=== PATIENT | male | born 1955 | race African-American/Black ===

== ENCOUNTER 2018-11-29 04:54 | Inpatient (IN) | payer MEDICAID ==
[~2018-11-29] VITALS: Ht 190.5 cm; Wt 73.8 kg
[2018-11-29] MEDS ORDERED: ONDANSETRON 2MG/ML, 2ML IVPush ONE (05:30)
[2018-11-29] MEDS ORDERED: SODIUM CHLORIDE FLUSH 10ML SYR IVF ONE (05:30)
[2018-11-29] MEDS ORDERED: ACETAMINOPHEN 325 MG TABLET PO ONE (05:30)
[2018-11-29] MEDS ORDERED: ALBUTEROL/IPRATROPIUM 2.5MG/0.5MG, 3 ML NPPB ONE (05:30)
[2018-11-29] MEDS ORDERED: SODIUM CHLORIDE 0.9% 1,000ML IVBOLUS ONE (05:30)
[2018-11-29] MEDS ORDERED: MIRT30TA PO (05:43)
[2018-11-29] MEDS ORDERED: MORP30TA81 PO (05:43)
[2018-11-29] MEDS ORDERED: NAUSEA MEDS (05:43)
[2018-11-29] MEDS ORDERED: MELA1TAB6 PO (05:43)
[2018-11-29] MEDS ORDERED: HYDR-3622 PO (05:43)
[2018-11-29] MEDS ORDERED: ONDANSETRON 2MG/ML, 2ML ONE (05:46)
[2018-11-29] MEDS ORDERED: ACETAMINOPHEN 325 MG TABLET ONE (05:46)
--- NOTE | 2018-11-29 06:15 | NUR ---
IV STARTED, ABLE TO DRAWN LABS. BLOOD CULTURES DRAWN X2. ORDERED FLUIDS AND MEDS GIVEN PER EMAR. PT RESTING CALMLY IN [facility] IN [facility]OSPITAL GOWN. PT ON VITALS AND CARDIAC MONITORS. BREATHING TX DONE. FLU SWAB DONE AND SENT. BILAT BEDRAILS UP. CALL LIGHT WITHIN REACH. WILL CONTINUE TO MONITOR.
[2018-11-29 06:18] LABS: RAPID INFLUENZA A Negative (Negative); RAPID INFLUENZA B Negative (Negative)
--- NOTE | 2018-11-29 06:19 | NUR ---
CT PENDING: LAB RES/CREAT
[2018-11-29 06:21] LABS: MEAN CORPUSCULAR HEMOGLOBIN 29.8 pg (27.5-34.5); MEAN CORPUSCULAR HGB CONC 33.5 g/dL (33.2-36.2); MEAN CORPUSCULAR VOLUME 88.9 fL (81-97); MEAN PLATELET VOLUME 7.1 fL (7.4-10.4); PLATELET COUNT 204 x10^3/uL (130-400); RED BLOOD COUNT 4.42 x10^6/uL (4.38-5.82); RED CELL DISTRIBUTION WIDTH 14.9 % (9.4-14.8)
[2018-11-29 06:22] LABS: ALANINE AMINOTRANSFERASE 32 U/L (12-78); ALBUMIN 3.1 g/dL (3.4-5.0); ANION GAP 8 mmol/L (5-15); CALCIUM 8.6 mg/dL (8.5-10.1); CHLORIDE 101 mmol/L (98-107)
[2018-11-29 06:27] LABS: ALKALINE PHOSPHATASE 78 U/L (45-117); BILIRUBIN,TOTAL 0.6 mg/dL (0.2-1.0); TROPONIN I < 0.015 ng/mL (0.000-0.045)
--- NOTE | 2018-11-29 06:27 | NUR ---
PT GIVEN URINAL AND URINE CUP FOR SPECIMEN COLLECTION AND INSTRUCTED ON PROPER COLLECTION PROCEDURE.
[2018-11-29 06:49] LABS: BASOPHILS # (AUTO) 0.03 x10^3/uL (0-0.1); BASOPHILS % (AUTO) 1 % (0-1); EOSINOPHILS # (AUTO) 0.07 x10^3/uL (0-0.4); EOSINOPHILS % (AUTO) 1 % (1-7); LYMPHOCYTES # (AUTO) 0.76 x10^3/uL (1-3.4); LYMPHOCYTES % (AUTO) 11 % (22-44); MD SCAN; MONOCYTES # (AUTO) 1.02 x10^3/uL (0.2-0.8); MONOCYTES % (AUTO) 15 % (2-9); NEUTROPHILS # (AUTO) 4.93 x10^3/uL (1.8-6.8); NEUTROPHILS % (AUTO) 72 % (42-75)
--- NOTE | 2018-11-29 06:55 | NUR ---
pt SpO2 88-89% RA while sleeping, improved after suppl O2 applied.
[2018-11-29] MEDS ORDERED: OMNIPAQUE 350 MG/ML, 100ML BOTTLE ONE (06:57)
--- NOTE | 2018-11-29 07:00 | NUR ---
received report from [facility]. pt sleeping on gurney, responds approp to staff, NAD, comfort measures provided, call light within reach.
[2018-11-29] MEDS ORDERED: PIPERACILLIN/TAZO/PMX 3.375GM 50 ML ONE (07:56)
[2018-11-29] MEDS ORDERED: PIPERACILLIN/TAZO/PMX 3.375GM 50 ML IV ONE (08:00)
--- NOTE | 2018-11-29 08:00 | NUR ---
BOTH BLOOD CULTURES DRAWN BEFORE ABX GIVEN
--- NOTE | 2018-11-29 08:37 | NUR ---
resumed care of pt from Anay. pt up to BR, back to [facility] awake & comfortable, responds approp to staff, NAD, comfort measures provided, call light within reach.
[2018-11-29 08:53] LABS: MICROSCOPIC NOT IND
[2018-11-29 08:56] LABS: CULTURE INDICATED? NO
[2018-11-29] MEDS ORDERED: ONDANSETRON ODT 4 MG PO PRN (09:00)
[2018-11-29] MEDS ORDERED: BISACODYL 10 MG SUPP PR PRN (09:00)
[2018-11-29] MEDS ORDERED: hydrALAzine 20 MG/ML, 1ML IVPush PRN (09:00)
[2018-11-29] MEDS ORDERED: ONDANSETRON 2MG/ML, 2ML IVPush PRN (09:00)
[2018-11-29] MEDS ORDERED: SODIUM CHLORIDE 0.9% 1,000 ML IV SCH (09:00)
[2018-11-29] MEDS: PIPERACILLIN/TAZO/PMX 3.375GM 50 ML IV SCH ×3 (09:00→23:08)
[2018-11-29] MEDS ORDERED: POLYETHYLENE GLYCOL 17 GM PACKET PO PRN (09:00)
[2018-11-29] MEDS ORDERED: ACETAMINOPHEN 325 MG TABLET PO PRN (09:00)
[2018-11-29] MEDS ORDERED: DOCUSATE 100 MG CAPSULE PO PRN (09:00)
--- NOTE | 2018-11-29 09:01 | NUR ---
pt upright on gurney awake & comfortable, talking on cell phone, responds approp to staff, NAD, comfort measures provided, call light within reach.
[2018-11-29 09:33] LABS: FREE T4 (FREE THYROXINE) 1.37 ng/dL (0.76-1.46); THYROID STIMULATING HORMONE 0.746 mIU/L (0.358-3.740)
[2018-11-29] MEDS ORDERED: NICOTINE 14MG/24 HR PATCH.TD24 ONE (09:39)
[2018-11-29] MEDS ORDERED: ENOXAPARIN 40 MG/0.4 ML ONE (09:39)
[2018-11-29] MEDS ORDERED: SENNA/DOCUSATE TABLET ONE (09:39)
[2018-11-29] MEDS ORDERED: methylPREDNISolone SOD SUCC 40 MG/ML ONE (09:39)
[2018-11-29] MEDS ORDERED: FAMOTIDINE 20 MG TABLET ONE (09:39)
[2018-11-29] MEDS ORDERED: HYDROcodone/APAP 10/325 MG TABLET ONE ×2 (09:40→09:53)
[2018-11-29] MEDS: SENNA/DOCUSATE TABLET PO SCH (09:51)
[2018-11-29] MEDS: HYDROcodone/APAP 10/325 MG TABLET PO SCH ×3 (09:51→23:09)
[2018-11-29] MEDS: ENOXAPARIN 40 MG/0.4 ML SQ SCH (09:51)
[2018-11-29] MEDS: NICOTINE 14MG/24 HR PATCH.TD24 TD SCH (09:51)
[2018-11-29] MEDS: methylPREDNISolone SOD SUCC 40 MG/ML IVPush SCH ×3 (09:52→23:08)
[2018-11-29] MEDS: FAMOTIDINE 20 MG TABLET PO SCH ×2 (09:52→23:08)
--- NOTE | 2018-11-29 10:02 | NUR ---
pt remains upright on gurney awake & comfortable, able to doze off, responds approp to staff, NAD, comfort measures provided, call light within reach.
--- NOTE | 2018-11-29 10:16 | NUR ---
Pt to be admitted to med-onc, room 362. Report called to Julita.
[2018-11-29 10:43] VITALS: BP 100/60
[2018-11-29] MEDS: SODIUM CHLORIDE 0.9% 1,000 ML IV SCH ×2 (11:58→18:43)
[2018-11-29 13:40] VITALS: BP 108/53
[2018-11-29] MEDS: IPRATROPIUM 0.5 MG/2.5 ML INHA NPPB SCH ×2 (14:14→21:00)
[2018-11-29] MEDS: GUAIFENESIN/COD200MG-20MG/10ML LIQUID PO PRN ×2 (16:10→23:09)
[2018-11-29 20:03] VITALS: BP 139/76
[2018-11-29] MEDS: TEMPLATE NON-FORMULARY MED. (Melatonin** 1 MG) PO SCH (21:00)
[2018-11-29] MEDS: MIRTAZAPINE 15 MG TABLET PO SCH (23:08)
[2018-11-30 01:12] VITALS: BP 115/66
[2018-11-30 01:30] VITALS: BP 130/69
[2018-11-30] MEDS: IPRATROPIUM 0.5 MG/2.5 ML INHA NPPB SCH ×4 (03:00→22:30)
[2018-11-30] MEDS: SODIUM CHLORIDE 0.9% 1,000 ML IV SCH ×2 (03:28→15:59)
[2018-11-30 05:08] LABS: MEAN CORPUSCULAR HGB CONC 32.9 g/dL (33.2-36.2); MEAN CORPUSCULAR VOLUME 88.2 fL (81-97); MEAN PLATELET VOLUME 7.1 fL (7.4-10.4); PLATELET COUNT 219 x10^3/uL (130-400); RED BLOOD COUNT 3.83 x10^6/uL (4.38-5.82); RED CELL DISTRIBUTION WIDTH 14.7 % (9.4-14.8)
[2018-11-30] MEDS: methylPREDNISolone SOD SUCC 40 MG/ML IVPush SCH ×4 (05:09→23:56)
[2018-11-30] MEDS: PIPERACILLIN/TAZO/PMX 3.375GM 50 ML IV SCH ×4 (05:10→23:56)
[2018-11-30 05:14] LABS: CHLORIDE 105 mmol/L (98-107)
[2018-11-30 05:21] LABS: ANION GAP 7 mmol/L (5-15); CALCIUM 9.1 mg/dL (8.5-10.1); CHOL/HDL RATIO 2.8; CHOLESTEROL, TOTAL 148 mg/dL (140-239); CREATININE 0.85 mg/dL (0.7-1.3); HDL CHOL % 35 % (26-37); HDL CHOLESTEROL (DIRECT) 52 mg/dL (40-60); LDL CHOLESTEROL,CALCULATED 85 mg/dL (54-169); LDL/HDL RATIO 1.6 (0.5-3.0); TRIGLYCERIDES 56 mg/dL (50-200); VLDL CHOLESTEROL 11 mg/dL (0-25)
[2018-11-30] MEDS: GUAIFENESIN/COD200MG-20MG/10ML LIQUID PO PRN (05:22)
[2018-11-30 05:46] LABS: BASOPHILS % (AUTO) 0 % (0-1); EOSINOPHILS % (AUTO) 0 % (1-7); LYMPHOCYTES # (AUTO) 0.52 x10^3/uL (1-3.4); LYMPHOCYTES % (AUTO) 6 % (22-44); MD SCAN; MONOCYTES # (AUTO) 0.78 x10^3/uL (0.2-0.8); MONOCYTES % (AUTO) 9 % (2-9); NEUTROPHILS # (AUTO) 7.06 x10^3/uL (1.8-6.8); NEUTROPHILS % (AUTO) 84 % (42-75)
[2018-11-30 07:44] VITALS: BP 129/55
[2018-11-30] MEDS: NICOTINE 14MG/24 HR PATCH.TD24 TD SCH (09:21)
[2018-11-30] MEDS: ENOXAPARIN 40 MG/0.4 ML SQ SCH (09:22)
[2018-11-30] MEDS: FAMOTIDINE 20 MG TABLET PO SCH ×2 (09:23→20:01)
[2018-11-30] MEDS: SENNA/DOCUSATE TABLET PO SCH (09:23)
[2018-11-30] MEDS: HYDROcodone/APAP 10/325 MG TABLET PO SCH ×3 (09:23→20:01)
[2018-11-30 13:16] VITALS: BP 112/65
[2018-11-30] MEDS: MIRTAZAPINE 15 MG TABLET PO SCH (20:01)
[2018-11-30] MEDS: TEMPLATE NON-FORMULARY MED. (Melatonin** 1 MG) PO SCH (20:02)
[2018-11-30 20:05] VITALS: BP 130/62
[2018-12-01 01:50] VITALS: BP 119/64
[2018-12-01] MEDS: IPRATROPIUM 0.5 MG/2.5 ML INHA NPPB SCH (03:00)
[2018-12-01 05:15] LABS: MEAN CORPUSCULAR HEMOGLOBIN 29.7 pg (27.5-34.5); MEAN CORPUSCULAR HGB CONC 33.3 g/dL (33.2-36.2); MEAN CORPUSCULAR VOLUME 89.3 fL (81-97); PLATELET COUNT 246 x10^3/uL (130-400); RED BLOOD COUNT 3.65 x10^6/uL (4.38-5.82)
[2018-12-01 05:28] LABS: ANION GAP 5 mmol/L (5-15); CALCIUM 8.7 mg/dL (8.5-10.1); CHLORIDE 107 mmol/L (98-107)
[2018-12-01 05:29] LABS: CREATININE 0.94 mg/dL (0.7-1.3)
[2018-12-01] MEDS: methylPREDNISolone SOD SUCC 40 MG/ML IVPush SCH ×2 (05:46→12:28)
[2018-12-01] MEDS: PIPERACILLIN/TAZO/PMX 3.375GM 50 ML IV SCH ×2 (05:46→12:28)
[2018-12-01 05:48] LABS: BASOPHILS % (AUTO) 0 % (0-1); EOSINOPHILS % (AUTO) 0 % (1-7); LYMPHOCYTES # (AUTO) 0.44 x10^3/uL (1-3.4); LYMPHOCYTES % (AUTO) 3 % (22-44); MD SCAN; MONOCYTES # (AUTO) 1.46 x10^3/uL (0.2-0.8); MONOCYTES % (AUTO) 9 % (2-9); NEUTROPHILS # (AUTO) 14.21 x10^3/uL (1.8-6.8); NEUTROPHILS % (AUTO) 88 % (42-75)
[2018-12-01 06:46] VITALS: BP 94/62
[2018-12-01] MEDS: HYDROcodone/APAP 10/325 MG TABLET PO SCH (09:05)
[2018-12-01] MEDS: ENOXAPARIN 40 MG/0.4 ML SQ SCH (09:05)
[2018-12-01] MEDS: FAMOTIDINE 20 MG TABLET PO SCH (09:05)
[2018-12-01] MEDS: SENNA/DOCUSATE TABLET PO SCH (09:05)
[2018-12-01] MEDS: NICOTINE 14MG/24 HR PATCH.TD24 TD SCH (09:06)
[2018-12-01 13:01] VITALS: BP 129/77
== END 2018-12-01 14:11 | disposition home or self-care (01) | DRG 871 ==
LOC: ED 08:08 → EDIP 08:56 → 3NE 10:24
PROVIDERS: ADMIT Hospitalist; ATTEND Hospitalist
DX: A41.9 Sepsis, unspecified organism (principal); J18.9 Pneumonia, unspecified organism; J18.0 Bronchopneumonia, unspecified organism; E44.0 Moderate protein-calorie malnutrition; G89.29 Other chronic pain; J45.909 Unspecified asthma, uncomplicated; F14.90 Cocaine use, unspecified, uncomplicated; F32.9 Major depressive disorder, single episode, unspecified; Z68.20 Body mass index [BMI] 20.0-20.9, adult; Z82.0 Family history of epilepsy and other diseases of the nervous system; Z72.0 Tobacco use; Z85.118 Personal history of other malignant neoplasm of bronchus and lung; Z87.442 Personal history of urinary calculi
CPT/HCPCS: 36415; 87400; 99285; J7620; J7644; 71046; 71275; 80048; 80053; 80061; 81003; 83605; 83690; 83735; 83880; 84100; 84439; 84443; 84484; 85025; 87040; 87070; 87205; 93005; 94640; 96361; 96374; G0378; J1650; J2405; J2543; Q9967; J2920; J7030